=== PATIENT | female | born 1980 | race African-American/Black ===

== ENCOUNTER → 2021-09-22 11:05 | Outpatient (BNVA) | payer OTHER, SELFPAY | PROVIDERS: PCP Internal Medicine; Visit Provider Nurse Practitioner Family | DX: M47.26 Other spondylosis with radiculopathy, lumbar region (principal); M54.6 Pain in thoracic spine; M62.830 Muscle spasm of back; G56.90 Unspecified mononeuropathy of unspecified upper limb; M25.561 Pain in right knee; M25.562 Pain in left knee; M22.00 Recurrent dislocation of patella, unspecified knee; M53.3 Sacrococcygeal disorders, not elsewhere classified | CPT/HCPCS: 99202 ==

== ENCOUNTER 2021-12-02 13:02 | Outpatient (REF) | payer OTHER, SELFPAY | END 2021-12-02 13:03 | disposition home or self-care (01) | LOC: HO.HOSX 13:02 | PROVIDERS: Visit Provider Physician Assistant | DX: Z13.89 Encounter for screening for other disorder (principal) ==

== ENCOUNTER 2022-01-20 07:38 | Outpatient (REF) | payer OTHER, SELFPAY | END 2022-01-20 07:39 | disposition home or self-care (01) | LOC: HO.HOSX 07:38 | PROVIDERS: Visit Provider Physician Assistant | DX: Z13.89 Encounter for screening for other disorder (principal) ==

== ENCOUNTER 2022-02-10 07:32 | Outpatient (REF) | payer OTHER, SELFPAY | END 2022-02-10 07:33 | disposition home or self-care (01) | LOC: HO.HOSX 07:32 | PROVIDERS: Visit Provider Physician Assistant | DX: Z13.89 Encounter for screening for other disorder (principal) ==

== ENCOUNTER 2022-02-16 11:21 | Outpatient (REF) | payer OTHER, SELFPAY ==
--- NOTE | 2022-02-16 10:00 | EMG_ITS ---
Right median and ulnar motor and sensory studies were performed. Right radial sensory study was performed. Right median and lateral antecubital brachial sensory studies were performed. Right tibial and peroneal motor studies were performed. Right sural and superficial peroneal study was performed and tibial H-reflex was obtained. Needle examination was done. IMPRESSION: 1. No significant abnormality was noted in right lower extremity. 2. Chronic right mid cervical radiculopathy with no evidence of entrapment neuropathy. MD ANA MARIA Echevarria/JAMES / [id number]
== END 2022-02-16 11:22 | disposition home or self-care (01) ==
LOC: HO.NEURO 11:21
PROVIDERS: PCP Internal Medicine; Visit Provider Nurse Practitioner Family
DX: G56.93 Unspecified mononeuropathy of bilateral upper limbs (principal); M22.00 Recurrent dislocation of patella, unspecified knee
CPT/HCPCS: 95886; 95912